=== PATIENT | male | born 1960 | race African-American/Black ===

== ENCOUNTER 2024-09-11 10:32 | Emergency (ER) | payer OTHER, SELFPAY ==
--- NOTE | ~2024-09-11 | XR_ITS ---
CLINICAL HISTORY: pain 2 view chest x-ray Comparison: None Findings: Mild right basilar atelectasis/pneumonitis. No lobar consolidation or effusion. Bilateral emphysematous changes. No pneumothorax. Cardiac silhouette and mediastinal contours are within normal limits. Degenerative changes include imaged right AC joint. IMPRESSION: Mild right basilar atelectasis and/or pneumonitis. This document has been electronically signed by: Real Marie MD on 09/11/2024 19:00:49
--- NOTE | ~2024-09-11 | XR_ITS ---
EXAMINATION: XR HAND, RIGHT CLINICAL INFORMATION: pain and swelling hx gout COMPARISON: None available. TECHNIQUE: PA, lateral, and oblique views of the right hand. FINDINGS: No fracture or dislocation. Flexion deformity fifth digit PIP joint, with moderate arthritis DIP joint with marginal punched-out type erosions typical of gout. Joint space narrowing with flexion deformity of the fourth digit PIP joint. No erosions seen. Moderate arthritis with mild subluxation at the first MCP joint, with overlying soft tissue swelling. Subtle marginal erosions. Remainder of the MCPs are preserved. There is radiocarpal joint space narrowing. There is widening the scapholunate interval suggesting scapholunate ligament tear. DRUJ appears normal. No abnormal soft tissue calcification. Mild soft tissue prominence abutting the ulnar styloid. XR/XR hand RT 2V IMPRESSION: 1. There are changes of gouty arthropathy most significant involving the fifth digit, with lesser involvement of the fourth digit and first MCP joint. Soft tissue swelling of the first MCP joint, as well as the fourth and fifth digits, and overlying the ulnar styloid. No calcifications of the soft tissues. 2. Scapholunate widening suggesting scapholunate ligament tear. 3. Narrowing of the radiocarpal joint space. Electronically signed by: José Gallegos MD 09/11/2024 11:59 AM [facility]
[2024-09-11 10:48] VITALS: BP 135/93; PULSE 105; RESP 19; TEMP 36.6; O2SAT 98; BMI 24.1
[2024-09-11 12:43] LABS: Basophils Absolute Auto 0.1 X10*3/uL (0.0-0.2); Basophils Percent Auto 0.3 % (0-2); Eosinophils Percent Auto 0.1 % (0-4); Hematocrit 45.8 % (42.0-52.0); Hemoglobin 15.9 g/dl (14.0-18.0); Imm Gran Abs Auto 0.35 X10*3/uL (0.00-0.03); Imm Gran Pct Auto 1.7 % (0.0-0.4); Lymphocytes Absolute Auto 1.4 X10*3/uL (1.2-4.9); Lymphocytes Percent Auto 7.1 % (20-40); MANUAL DIFF FLAG SCAN; Mean Corpuscular HGB Conc 34.7 g/dl (31.0-36.0); Mean Corpuscular Hemoglobin 32.6 pg (27.0-33.0); Mean Platelet Volume 9.5 fL (9.4-12.4); Monocytes Absolute Auto 2.6 X10*3/uL (0.1-1.2); Monocytes Percent Auto 12.7 % (2-11); Neutrophils Absolute Auto 15.7 x10*3/uL (2.0-8.3); Neutrophils Percent Auto 78.1 % (45-73); Platelet Count 425 X10*3/uL (160-400); Red Blood Count 4.87 X10*6/uL (4.60-5.80); Red Cell Distribution Width 14.6 % (11.0-16.0); SCAN SMEAR FLAG 1; White Blood Count 20.1 X10*3/uL (4.8-10.8)
[2024-09-11 12:59] LABS: Anion Gap 18 (12-20); Blood Urea Nitrogen 23 mg/dL (9-16); Calcium 10.5 mg/dL (8.4-10.2); Carbon Dioxide 24 mmol/L (22-29); Chloride 96 mmol/L (96-108); Creatinine Clr Calc Pharmacy 64.3; Estimated Glomerular Filt Rate 56; Glucose Random 126 mg/dL (60-115); Potassium 4.7 mmol/L (3.3-5.1); Sodium 133 mmol/L (135-145)
[2024-09-11 13:05] LABS: B Type Natriuretic Peptide 15 pg/mL (<100)
[2024-09-11 13:11] LABS: Uric Acid 7.7 mg/dL (3.4-7.0)
[2024-09-11 13:26] LABS: SLIDE REVIEW VERIFIED
[2024-09-11 17:28] VITALS: BP 153/86; PULSE 96; RESP 14; TEMP 36.7; O2SAT 100
--- NOTE | 2024-09-11 17:48 | ED_ITS ---
HPI - General Adult General Chief complaint: General Medical Stated complaint: Gout Time Seen by Provider: 09/11/24 17:48 Source: patient History of Present Illness HPI narrative: 64-year-old male who has a history of gout, presents for a one-week history of right hand pain. Patient states this began gradually as his typical gout flares. It then progressed to his knees and ankles. Over the last several days and has also progressed to his shoulders bilaterally which is atypical. Denies any fevers chills nausea or vomiting. No chest pain or shortness of breath. Denies any trauma. He has tried only ibuprofen. Patient states his last gouty flare was approximately several months ago. He reports that his triggers are shellfish and beer. Patient states he last had beer 2 weeks ago. Related Data Previous Rx's ?Medication ?Instructions ?Recorded colchicine 0.6 mg tablet 0.6 mg PO BID #20 tabs 09/11/24 doxycycline monohydrate 100 mg 100 mg PO BID 10 days #20 tabs 09/11/24 tablet prednisone 20 mg tablet 40 mg (2 x 20 mg) PO DAILY #10 tabs 09/11/24 Allergies Allergy/AdvReac Type Severity Reaction Status Date / Time No Known Allergies Allergy Verified 09/11/24 10:51 Review of Systems 2 Constitutional: Constitutional: Denies chills, Denies fever(s) and Denies headache(s) ENT: Denies headache(s), Denies nasal congestion, Denies nasal discharge, Denies neck pain and Denies sore throat Cardiovascular: Cardiovascular: Denies chest pain, Denies palpitations, Denies dyspnea, Denies dyspnea on exertion and Denies orthopnea Respiratory: Respiratory: Denies cough, Denies dyspnea and Denies dyspnea on exertion Gastrointestinal: Gastrointestinal: Denies abdominal pain, Denies melena, Denies hematochezia, Denies diarrhea, Denies nausea and Denies vomiting Musculoskeletal: Musculoskeletal: Denies back pain, Reports arthralgias, Denies muscle weakness, Denies neck pain and Denies numbness Integumentary/Breasts: Skin/Breast: Denies rash Neurologic: Denies headache(s), Denies focal weakness and Denies numbness Psychiatric: Psychiatric: Denies depression Endocrine: Endocrine: Denies palpitations PMFSH Past Medical History PMF Narrative: Gout Social History Social History Smoked in Last 30 Days: No Use of substances other than those prescribed or required for medical reasons: No Advance Directives: No Advance Directives Information Provided: Yes Do you have a plan to hurt others: No Plan Physical Exam ED Vital Signs: Vital Signs - 24 hr 09/11/24 10:48 09/11/24 17:28 09/11/24 20:29 Temperature 98 F 98.1 F 98.2 F Pulse Rate 105 H 96 99 Respiratory Rate 19 14 14 Blood Pressure 135/93 H 153/86 H 136/92 H Pulse Oximetry 98 100 96 Oxygen Delivery Method Room Air Room Air Room Air 09/11/24 20:31 Temperature 98.2 F Pulse Rate 99 Respiratory Rate 14 Blood Pressure 136/92 H Pulse Oximetry 96 Oxygen Delivery Method Room Air BMI result Body Mass Index 24.1 Const General: cooperative Resp Other: Lung sounds are clear throughout. Extrem Other: Joint swelling to the right 4th digit at the D IP. Also swelling to the dorsum of the right 2nd and 3rd MCP. There is no erythema. Curling Machine Operator is 4/5 on the right, secondary to pain. Curling Machine Operator is 5/5 on the left. Full range of motion of all joints. Radial pulses are +2 and equal bilaterally. There is diffuse tenderness to the shoulders bilaterally without any crepitus. Mild tenderness to the trapezius muscles bilaterally. Course Course Course Narrative: Reviewed ESR and CRP, elevated at this time however does not appear to be any evidence of septic joint. Patient will be placed on steroids, colchicine and antibiotics as a precaution in case the any underlying early infection. Discussed with Dr. Palacio who agrees with the plan. Reviewed all discharge instructions with the patient including adherence to avoiding triggers such as shellfish and beer. Referral to Rheumatology also provided. Discussed with the patient all discharge instructions. He expressed understanding and has no further questions at this time. Medications Administered Discontinued Medications Generic Name Dose Route Start Last Admin Trade Name Freq PRN Reason Stop Dose Admin Colchicine 1.2 mg 09/11/24 19:51 09/11/24 20:11 Colchicine 0.6 Mg Tablet PO 09/11/24 19:52 1.2 mg ONCE ONE Administration Doxycycline Monohydrate 100 mg 09/11/24 19:44 09/11/24 20:11 Doxycycline Monohydrate 100 Mg Capsule PO 09/11/24 19:45 100 mg ONCE ONE Administration Prednisone 60 mg 09/11/24 19:44 09/11/24 20:11 Prednisone 20 Mg Tablet PO 09/11/24 19:45 60 mg ONCE ONE Administration Medical Decision Making Medical Decision Making [facility] Narrative: 64-year-old male with a history of gout, progressively worsening pain to the right hand and multiple of the joints. Patient actually reports that the right hand has decreased in swelling. There is no erythema to report secondary sign of infection. There was no history of trauma. Concerned that the patient's white count is elevated at 20. He is afebrile and denies any history of fever. Will add CRP, ESR, Lyme and check chest x-ray. Discussed with Dr. Palacio who agrees with plan. Differential Diagnosis Differential Diagnoses: The differential diagnosis associated with the presentation includes Gout Autoimmune disorder Polyarthralgia Osteoarthritis Cellulitis Septic joint Lab Data [facility] Lab Attestation statement: I reviewed the patient's lab results. 09/11/24 12:30 09/11/24 12:30 Labs: Lab Results 09/11/24 09/11/24 Range/Units 12:30 12:31 WBC 20.1 H (4.8-10.8) X10*3/uL RBC 4.87 (4.60-5.80) X10*6/uL Hgb 15.9 (14.0-18.0) g/dl Hct 45.8 (42.0-52.0) % MCV 94.0 (80.0-98.0) fL MCH 32.6 (27.0-33.0) pg MCHC 34.7 (31.0-36.0) g/dl RDW 14.6 (11.0-16.0) % Plt Count 425 H (160-400) X10*3/uL MPV 9.5 (9.4-12.4) fL Immature Gran % (Auto) 1.7 H (0.0-0.4) % Neut % (Auto) 78.1 H (45-73) % Lymph % (Auto) 7.1 L (20-40) % [place] % (Auto) 12.7 H (2-11) % Eos % (Auto) 0.1 (0-4) % Baso % (Auto) 0.3 (0-2) % Lymph # (Auto) 1.4 (1.2-4.9) X10*3/uL [place] # (Auto) 2.6 H (0.1-1.2) X10*3/uL Eos # (Auto) 0.0 (0.0-0.4) X10*3/uL Baso # (Auto) 0.1 (0.0-0.2) X10*3/uL Abs Immat Gran (auto) 0.35 H (0.00-0.03) X10*3/uL Absolute Neuts (auto) 15.7 H (2.0-8.3) x10*3/uL Absolute Nucleated RBC 0.000 (0.0-0.012) X10*3/uL Nucleated RBC % (auto) 0.0 (0.0-0.2) /100WBC Smear Tech's Comments VERIFIED ESR 66 H (0-15) MM/HR Sodium 133 L (135-145) mmol/L Potassium 4.7 (3.3-5.1) mmol/L Chloride 96 (96-108) mmol/L Carbon Dioxide 24 (22-29) mmol/L Anion Gap 18 (12-20) BUN 23 H (9-16) mg/dL Creatinine 1.29 (0.5-1.4) mg/dL Estim Creat Clear Calc 64.3 Estimated GFR 56 Random Glucose 126 H (60-115) mg/dL Uric Acid 7.7 H (3.4-7.0) mg/dL Calcium 10.5 H (8.4-10.2) mg/dL C-Reactive Protein 32.51 H (< or = 0.50) mg/dL B-Natriuretic Peptide 15 (<100) pg/mL Radiology Impression Discussion of test interpretation with radiology: I have reviewed the radiologist's reading. Radiologist Impression: [address] [address] XRay Report Signed Patient: Ruben Gilbert MR#: [id number] : 1960 Acct:[id number] Age/Sex: 64 / M ADM Date: 09/11/24 Loc: .ED Attending Dr: Ordering Physician: Thierry German Date of Service: 09/11/24 Procedure(s): XR chest 2V Accession Number(s): [id number] cc: Physician,None ; Thierry German~ CLINICAL HISTORY: pain 2 view chest x-ray Comparison: None Findings: Mild right basilar atelectasis/pneumonitis. No lobar consolidation or effusion. Bilateral emphysematous changes. No pneumothorax. Cardiac silhouette and mediastinal contours are within normal limits. Degenerative changes include imaged right AC joint. IMPRESSION: Mild right basilar atelectasis and/or pneumonitis. This document has been electronically signed by: Real Marie MD on 09/11/2024 19:00:49 Dictated By: Real Marie MD Signed By: <Electronically signed by Real Marie MD in [place]> 09/11/241900 DD/ 99 TD/TT: 09/11/241899 Customer Service Cashier: [place] [address] XRay Report Signed Patient: Ruben Gilbert MR#: [id number] : 1960 Acct:[id number] Age/Sex: 64 / M ADM Date: 09/11/24 Loc: HO.ED Attending Dr: Ordering Physician: Generic ED Physician Date of Service: 09/11/24 Procedure(s): XR hand RT 2V Accession Number(s): [id number] cc: Generic ED Physician; Physician,None ~ EXAMINATION: XR HAND, RIGHT CLINICAL INFORMATION: pain and swelling hx gout COMPARISON: None available. TECHNIQUE: PA, lateral, and oblique views of the right hand. FINDINGS: No fracture or dislocation. Flexion deformity fifth digit PIP joint, with moderate arthritis DIP joint with marginal punched-out type erosions typical of gout. Joint space narrowing with flexion deformity of the fourth digit PIP joint. No erosions seen. Moderate arthritis with mild subluxation at the first MCP joint, with overlying soft tissue swelling. Subtle marginal erosions. Remainder of the MCPs are preserved. There is radiocarpal joint space narrowing. There is widening the scapholunate interval suggesting scapholunate ligament tear. DRUJ appears normal. No abnormal soft tissue calcification. Mild soft tissue prominence abutting the ulnar styloid. XR/XR hand RT 2V IMPRESSION: 1. There are changes of gouty arthropathy most significant involving the fifth digit, with lesser involvement of the fourth digit and first MCP joint. Soft tissue swelling of the first MCP joint, as well as the fourth and fifth digits, and overlying the ulnar styloid. No calcifications of the soft tissues. 2. Scapholunate widening suggesting scapholunate ligament tear. 3. Narrowing of the radiocarpal joint space. Electronically signed by: José Gallegos MD 09/11/2024 11:59 AM EST Dictated By: José Gallegos MD Signed By: <Electronically signed by José Gallegos MD in [place]> 09/11/24 1159 DD/ 1143 TD/TT: 09/11/24 1143 Customer Service Cashier: Prescription Management I considered prescription management with: Pain Medication and Antibiotic Discharge Plan Discharge Clinical Impression: Gouty arthritis Patient Disposition: Home, Self-Care Instructions: Low Purine Diet (ED), Gout (ED) Additional Instructions: Colchicine as directed. Prednisone as directed. Doxycycline as directed. Watch for any worsening of symptoms, severe pain, redness, streaking, fevers or any other concern return immediately to the emergency department. Follow up with the Rheumatology referral. Call 1st thing Saturday morning. Avoid your triggers of beer and shellfish. Follow-up with your primary care provider. Call this week to schedule a follow- up appointment. Return to the emergency department if you have any worsening of symptoms, or any concerns. Get well soon! Prescriptions: New doxycycline monohydrate 100 mg tablet 100 mg PO BID 10 Days Qty: 20 0RF colchicine 0.6 mg tablet 0.6 mg PO BID Qty: 20 0RF prednisone 20 mg tablet 40 mg PO DAILY Qty: 10 0RF Referrals: [facility] Rheumatology Service [Provider Group] - 10 days (Recurrent gout) Stand Alone Forms: Work/School Release Interventions: ED Discharge Assessment Last Done: 09/11/24 20:31 Discharge Date/Time: 09/11/24 20:33 Print Language: [place] Zealander
[2024-09-11 18:47] LABS: C Reactive Protein 32.51 mg/dL (< or = 0.50)
[2024-09-11 19:48] LABS: Erythrocyte Sedimentation Rate 66 MM/HR (0-15)
[2024-09-11] MEDS: Colchicine 0.6 MG TABLET 1.2 MG PO (20:11)
[2024-09-11] MEDS: predniSONE 20 MG TABLET 60 MG PO (20:11)
[2024-09-11] MEDS: Doxycycline Monohydrate 100 MG CAPSULE PO (20:11)
[2024-09-11 20:29] VITALS: BP 136/92; PULSE 99; RESP 14; TEMP 36.8; O2SAT 96
[2024-09-11 20:31] VITALS: BP 136/92; PULSE 99; RESP 14; TEMP 36.8; O2SAT 96
[2024-09-16 19:02] LABS: Lyme Disease DNA PCR NOT DETECTED (NOT DETECTED)
== END 2024-09-11 20:33 | disposition home or self-care (01) ==
PROVIDERS: Physician Assistant; Emergency Provider Emergency Medicine
DX: M10.041 Idiopathic gout, right hand (principal); R07.89 Other chest pain; M79.641 Pain in right hand; Z79.899 Other long term (current) drug therapy
CPT/HCPCS: 36415; 71046; 73120; 80048; 83880; 84550; 85025; 85652; 86140; 99283; 99284

== ENCOUNTER → 2024-09-11 11:43 | Outpatient (BNV) | payer SELFPAY | PROVIDERS: Visit Provider Radiology Diagnostic Radiology | DX: R07.9 Chest pain, unspecified (principal); M10.041 Idiopathic gout, right hand | CPT/HCPCS: 71046; 73120 ==